=== PATIENT | male | born 1940 | race Caucasian/White ===

== ENCOUNTER 2019-03-27 11:45 | Emergency (ER) | payer MEDICARE ==
[~2019-03-27] VITALS: Ht 167.6 cm; Wt 79.4 kg
[~2019-03-27 11:45] MED LIST: ATEN-166 PO; BETA15OI3 TP; FURO-149 PO; PHEN100C4 PO; PHEN32.43 PO; POTA10CA14 PO; ROPI2TAB4 PO
--- NOTE | 2019-03-27 11:48 | NUR ---
Placed in room 02 . Placed on [employer] electronic, blood pressure machine and pulse oximeter. To gown for exam. Side rails up.
--- NOTE | 2019-03-27 11:49 | NUR ---
Pt brought via ACLS, pt presents to ER with seizures/shaking at this time,eyes closed, per paramedics patient has not been eating or drinking in the last couple days, pt not complaint with medications including keppra, pt responsive to name, respirations even and unlabored, VSS, cap refill <3.
[2019-03-27 11:50] VITALS: BP_SYST 115
--- NOTE | 2019-03-27 11:50 | NUR ---
Arrived via [facility] ambulance for shaking activity after not taking Keppra and having decreased PO intake. Patient to ER bed 3 to gown for evaluation. Placed on clinical cytogenetics director. Side rails up. Report given to Chloe CRANE.
--- NOTE | 2019-03-27 11:52 | NUR ---
Alecia Lopez at bedside examining patient
[2019-03-27] MEDS ORDERED: LORazepam 2 MG/ML VIAL (FOR ER USE) IVP ONE (12:00)
[2019-03-27] MEDS ORDERED: NACL 0.9% 1,000 ML IV ONE ×3 (12:00→15:30)
[2019-03-27] MEDS ORDERED: levETIRAcetam 1,000 MG IV BAG 100 ML IV ONE (12:15)
--- NOTE | 2019-03-27 12:15 | NUR ---
No seizure activity noted.
--- NOTE | 2019-03-27 12:30 | NUR ---
Pt given Keppra IV.
[2019-03-27 12:48] LABS: BASOPHILS % (AUTO) 0.7 % (0.0-2.0); EOSINOPHILS # (AUTO) 0.1 K/uL (0.0-0.4); EOSINOPHILS % (AUTO) 3.2 % (0.0-4.0); HEMATOCRIT 32.3 % (36-54); HEMOGLOBIN 10.7 g/dL (14.0-18.0); LYMPHOCYTES # (AUTO) 1.1 K/uL (1.0-5.5); MEAN CORPUSCULAR HEMOGLOBIN 31 pg (27-31); MEAN CORPUSCULAR HGB CONC 33 % (32-36); MEAN CORPUSCULAR VOLUME 93 fL (79.0-98.0); MONOCYTES # (AUTO) 0.6 K/uL (0.0-1.0); MONOCYTES % (AUTO) 13.7 % (1.7-9.3); NEUTROPHILS # (AUTO) 2.7 K/uL (1.8-7.7); NEUTROPHILS % (AUTO) 59.4 % (40.0-70.0); PLATELET COUNT (AUTO) 176 K/uL (130-430); RED BLOOD CELL COUNT(AUTO) 3.48 MIL/uL (4.2-6.2); RED CELL DISTRIBUTION WIDTH 13.6 % (9.0-15.0); WHITE BLOOD COUNT (AUTO) 4.6 K/uL (4.8-10.8)
[2019-03-27 12:54] LABS: ANION GAP 7 (5-15); CALCIUM 8.3 mg/dL (8.4-11.0); CHLORIDE 104 mmol/L (98-107); CREATININE 1.02 mg/dL (0.55-1.30); GLUCOSE 90 mg/dL (70-99); POTASSIUM 4.2 mmol/L (3.5-5.1); SODIUM SERUM 141 mmol/L (136-145); UREA NITROGEN, BLOOD 31 mg/dL (8-21)
[2019-03-27 13:03] LABS: ALANINE AMINOTRANSFERASE 12 U/L (12-78); ASPARTATE AMINOTRANSFERASE 21 U/L (10-37); TOTAL BILIRUBIN 0.2 mg/dL (0.0-1.0)
[2019-03-27 13:09] LABS: ALCOHOL, BLOOD < 3 mg/dL (<10)
--- NOTE | 2019-03-27 13:40 | NUR ---
Pt lethargic no seizure activity.
--- NOTE | 2019-03-27 14:00 | NUR ---
Pt tolerating IVF no urine output.Continuing to monitor.
--- NOTE | 2019-03-27 15:20 | NUR ---
Patient to be transferred to [facility] ER. Is being transferred due to higher level of care. Receiving facility has accepting physician and available space. ER physician has signed transfer form. Patient or responsible republican has agreed to transfer and signed form. Patient belongings inventoried and will be sent with patient. Copy of nursing notes, lab reports, EKG, Physicians Orders and X-rays to be sent with patient. Report called to SASHA TINOCO RN at receiving facility. Receiving physician is . [facility] ambulance service has been called for transfer. ETA is [id number] .
[2019-03-27 15:40] VITALS: BP_SYST 120
--- NOTE | 2019-03-27 15:40 | NUR ---
Pt transported to [facility].Pt stable at time of transport.
== END 2019-03-27 15:40 | disposition short-term general hospital (02) ==
LOC: SED 11:45
DX: R56.9 Unspecified convulsions (principal); R34 Anuria and oliguria; F32.9 Major depressive disorder, single episode, unspecified; F03.90 Unspecified dementia, unspecified severity, without behavioral disturbance, psychotic disturbance, mood disturbance, and anxiety; I11.0 Hypertensive heart disease with heart failure; I50.9 Heart failure, unspecified; K21.9 Gastro-esophageal reflux disease without esophagitis; Z79.899 Other long term (current) drug therapy
CPT/HCPCS: 36415; 70450; 80053; 82962; 84484; 85025; 93005; 96365; 96375; 99285; G0482; J1953; J2060; J7030